=== PATIENT | male | born 1960 | race Two or more races ===

== ENCOUNTER 2020-10-24 10:30 | Inpatient (IN) | payer MEDICAID, OTHER ==
[~2020-10-24] VITALS: Ht 167.6 cm; Wt 76.1 kg
[2020-10-24] MEDS ORDERED: SODIUM CHLORIDE 0.9% 2,000 ML IV ONE (12:30)
[2020-10-24 13:07] LABS: Basophils # (auto) 0 10 ^3/uL (0-0.2); Basophils % (auto) 0.1 % (0.0-2.0); Eosinophils # (auto) 0 10 ^3/uL (0-0.8); Hematocrit 45.8 % (41.0-53.0); Hemoglobin 15.6 g/dL (13.5-17.5); Lymphocytes # (auto) 1.1 10 ^3/uL (0.4-5.4); Lymphocytes % (auto) 13.9 % (10.0-50.0); Mean Corpuscular Hemoglobin 31.2 pg (28.0-32.0); Mean Corpuscular Hgb Conc. 34.1 g/dL (32.0-36.0); Mean Corpuscular Volume 91.5 fL (80.0-100.0); Monocytes # (auto) 0.7 10 ^3/uL (0-1.3); Monocytes % (auto) 8.2 % (0.0-12.0); Neutrophils # (auto) 6.3 10 ^3/uL (1.6-8.6); Neutrophils % (auto) 77.8 % (37.0-80.0); Nucleated Red Blood Cells % 0.1 %; Platelet Count (auto) 229 10^3/uL (140-450); Red Cell Distribution Width 13.6 % (11.8-14.3); White Blood Cell 8.1 10^3/uL (4.4-10.8)
[2020-10-24 13:27] LABS: Albumin 2.9 g/dL (3.4-5.0); Anion Gap 13 (5-15); Blood Urea Nitrogen 26 mg/dL (7-18); Calcium 9.1 mg/dL (8.5-10.1); Carbon Dioxide 18 mmol/L (21-32); Chloride 114 mmol/L (98-107); Magnesium 2.4 mg/dL (1.6-2.6); Potassium 4.4 mmol/L (3.5-5.1); Sodium 145 mmol/L (136-145)
[2020-10-24 13:32] LABS: Alanine Aminotransferase 23 U/L (16-61); Alkaline Phosphatase 103 U/L (45-117); Aspartate Aminotransferase 14 U/L (15-37); BUN/Creatinine Ratio 24.3; Bilirubin, Total 0.6 mg/dL (0.2-1.0); GFR African American 90 mL/min; GFR Non-African American 75 mL/min; Total Protein 8.2 g/dL (6.4-8.2)
[2020-10-24 13:54] LABS: Glucose 422 mg/dL (74-106)
[2020-10-24 15:58] LABS: INR 1.07 (0.9-1.15)
[2020-10-24] MEDS ORDERED: AZITHROMYCIN 500MG/ 250ML 250 ML IV ONE (18:45)
[2020-10-24] MEDS ORDERED: SODIUM CHLORIDE 0.9% 500 ML IV ONE (19:30)
[2020-10-24] MEDS ORDERED: DEXTROSE (50%) 50ML SYRG IV PRN (19:30)
[2020-10-24] MEDS ORDERED: NITROGLYCERIN 0.4 MG SL TAB SL PRN ×2 (19:30→23:45)
[2020-10-24] MEDS ORDERED: MORPHINE SULF INJ 2 MG/ML SYRINGE 1ML IV PRN ×3 (19:30→23:45)
[2020-10-24] MEDS ORDERED: ONDANSETRON HCL 4 MG/2 ML VIAL IV PRN (23:45)
[2020-10-24] MEDS ORDERED: ALUM & MAG HYDROX-SIMETH LIQ(MAALOX) 30 ML PO PRN (23:45)
[2020-10-24] MEDS ORDERED: REMDESIVIR PER PHARMACY 0 ML IV SCH (23:45)
[2020-10-24] MEDS ORDERED: VANCOMYCIN PER PHARMACY 0 MG IV SCH (23:45)
[2020-10-24] MEDS ORDERED: LORazepam 0.5 MG TAB PO PRN (23:45)
[2020-10-24] MEDS ORDERED: ENOXAPARIN SOD 100 MG/1 ML SYRINGE SC ONE (23:45)
[2020-10-24] MEDS ORDERED: HYDROcodone-ACET 5/325MG TAB PO PRN (23:45)
[2020-10-24] MEDS ORDERED: DOCUSATE SOD 100 MG CAP PO PRN (23:45)
[2020-10-24] MEDS ORDERED: ACETAMINOPHEN 500 MG TAB PO PRN (23:45)
[2020-10-24] MEDS ORDERED: PIPERACILLIN-TAZOB 3.375GM 100 ML IV ONE (23:45)
[2020-10-25] VITALS (7 sets, daily range): BP systolic 127–137; BP diastolic 68–77
[2020-10-25] MEDS ORDERED: VANCOMYCIN 1GM/250ML 250 ML IV ONE ×2 (00:15→17:15)
[2020-10-25] MEDS: ACCU-CHEK COMFORT CURVE STRIP VI SCH ×5 (00:25→23:36)
[2020-10-25] MEDS: InsuLIN REG 1unit/0.01ml Soln (100units/ml) SC SCH ×5 (00:25→23:39)
[2020-10-25] MEDS: SODIUM CHLORIDE 0.9% 1,000 ML IV SCH ×2 (00:26→16:25)
[2020-10-25] MEDS: DexAMETHasone SOD PHOS 10MG/1ML VIAL INJ IV SCH (10:37)
[2020-10-25] MEDS: ASCORBIC ACID 1,000 MG TAB PO SCH (10:38)
[2020-10-25] MEDS: FAMOTIDINE (10MG/ML) 2ML VL IV SCH ×2 (10:38→21:41)
[2020-10-25] MEDS: ZINC SULFATE 220mg CAP or TAB PO SCH (10:38)
[2020-10-25] MEDS: CHOLECALCIFEROL (VITD3) 2,000 UNIT CAP PO SCH (10:39)
[2020-10-25] MEDS: ENOXAPARIN SOD 100 MG/1 ML SYRINGE SC SCH ×2 (10:47→21:41)
[2020-10-25] MEDS: PIPERACILLIN-TAZOB 3.375GM 100 ML IV SCH ×2 (12:26→23:36)
[2020-10-25 13:39] LABS: Basophils # (auto) 0 10 ^3/uL (0-0.2); Basophils % (auto) 0.2 % (0.0-2.0); Eosinophils # (auto) 0 10 ^3/uL (0-0.8); Eosinophils % (auto) 0.7 % (0.0-7.0); Hematocrit 41.8 % (41.0-53.0); Hemoglobin 14.3 g/dL (13.5-17.5); Lymphocytes # (auto) 0.7 10 ^3/uL (0.4-5.4); Lymphocytes % (auto) 11.4 % (10.0-50.0); Mean Corpuscular Hemoglobin 30.6 pg (28.0-32.0); Mean Corpuscular Hgb Conc. 34.3 g/dL (32.0-36.0); Mean Corpuscular Volume 89.4 fL (80.0-100.0); Monocytes # (auto) 0.3 10 ^3/uL (0-1.3); Monocytes % (auto) 4.2 % (0.0-12.0); Neutrophils # (auto) 5.4 10 ^3/uL (1.6-8.6); Neutrophils % (auto) 83.5 % (37.0-80.0); Platelet Count (auto) 211 10^3/uL (140-450); Red Blood Cells 4.67 10^6/uL (4.5-5.90); Red Cell Distribution Width 13.4 % (11.8-14.3); White Blood Cell 6.4 10^3/uL (4.4-10.8)
[2020-10-25 13:58] LABS: Potassium 3.7 mmol/L (3.5-5.1)
[2020-10-25 14:04] LABS: Albumin 2.4 g/dL (3.4-5.0); BUN/Creatinine Ratio 21.2; Bilirubin, Total 0.5 mg/dL (0.2-1.0); Calcium 8.4 mg/dL (8.5-10.1); Total Protein 6.8 g/dL (6.4-8.2)
[2020-10-25] MEDS ORDERED: REMDESIVIR 200 MG in NS 210ml LOADING DOSE ADULT IV ONE (15:00)
[2020-10-25] MEDS: VANCOMYCIN 1GM/250ML 250 ML IV SCH (21:03)
[2020-10-25] MEDS: BUDESONIDE (INHALATION) 180 MCG IH IN SCH (21:15)
[2020-10-25] MEDS: ALBUTEROL SULF HFA 90MCG INH 200DOSE IN PRN (21:16)
[2020-10-25 22:38] LABS: Urine Bacteria NONE SEEN /hpf (None Seen); Urine Blood Negative /uL (Negative); Urine Specific Gravity 1.026 (1.001-1.035); Urine WBC 1 /hpf (0 - 3)
[2020-10-25 22:44] LABS: Alcohol, Urine < 3.0 mg/dL (0-10); Amphetamine Screen, Urine NEGATIVE (NEGATIVE); Barbiturate Scree,Urine NEGATIVE (NEGATIVE); Benzodiazephine Screen, Urine NEGATIVE (NEGATIVE); Cannabinoid Screen, Urine NEGATIVE (NEGATIVE); Cocaine Screen, Urine NEGATIVE (NEGATIVE); Opiate Scree,Urine NEGATIVE (NEGATIVE); Phencyclidine Screen, Urine NEGATIVE (NEGATIVE)
[2020-10-26] VITALS (7 sets, daily range): BP systolic 93–131; BP diastolic 58–73
[2020-10-26] MEDS: PIPERACILLIN-TAZOB 3.375GM 100 ML IV SCH ×4 (05:40→18:56)
[2020-10-26] MEDS: ACCU-CHEK COMFORT CURVE STRIP VI SCH ×3 (05:40→18:56)
[2020-10-26] MEDS: InsuLIN REG 1unit/0.01ml Soln (100units/ml) SC SCH ×3 (05:41→18:57)
[2020-10-26 07:41] LABS: Potassium 3.4 mmol/L (3.5-5.1)
[2020-10-26 07:54] LABS: Albumin 2.4 g/dL (3.4-5.0); BUN/Creatinine Ratio 22.9; Bilirubin, Total 0.5 mg/dL (0.2-1.0); Calcium 8.5 mg/dL (8.5-10.1); Total Protein 6.8 g/dL (6.4-8.2)
[2020-10-26] MEDS: BUDESONIDE (INHALATION) 180 MCG IH IN SCH ×2 (08:48→21:30)
[2020-10-26] MEDS: SODIUM CHLORIDE 0.9% 1,000 ML IV SCH (09:05)
[2020-10-26] MEDS ORDERED: METF500S PO (09:30)
[2020-10-26] MEDS: VANCOMYCIN 1GM/250ML 250 ML IV SCH ×2 (10:19→20:54)
[2020-10-26] MEDS: DexAMETHasone SOD PHOS 10MG/1ML VIAL INJ IV SCH (10:19)
[2020-10-26] MEDS: FAMOTIDINE (10MG/ML) 2ML VL IV SCH ×2 (10:19→21:32)
[2020-10-26] MEDS: ZINC SULFATE 220mg CAP or TAB PO SCH (10:20)
[2020-10-26] MEDS: ASCORBIC ACID 1,000 MG TAB PO SCH (10:20)
[2020-10-26] MEDS: CHOLECALCIFEROL (VITD3) 2,000 UNIT CAP PO SCH (10:20)
[2020-10-26] MEDS: ENOXAPARIN SOD 100 MG/1 ML SYRINGE SC SCH ×2 (10:21→21:32)
[2020-10-26] MEDS ORDERED: POTASSIUM CHL 20 Meq TABLET PO ONE (11:15)
[2020-10-26] MEDS: ALBUTEROL SULF HFA 90MCG INH 200DOSE IN PRN ×2 (11:15→21:30)
[2020-10-26] MEDS ORDERED: FUROSEMIDE 20 MG/2 ML VIAL IV ONE (11:15)
[2020-10-26] MEDS: REMDESIVIR 100 MG in SODIUM CHL 0.9% 250 ML IV SCH (15:46)
[2020-10-26] MEDS: FUROSEMIDE 20 MG/2 ML VIAL IV SCH (18:56)
[2020-10-27] VITALS (7 sets, daily range): BP systolic 94–138; BP diastolic 56–75
[2020-10-27] MEDS: ACCU-CHEK COMFORT CURVE STRIP VI SCH ×6 (00:03→21:34)
[2020-10-27] MEDS: PIPERACILLIN-TAZOB 3.375GM 100 ML IV SCH ×5 (00:03→23:35)
[2020-10-27] MEDS: InsuLIN REG 1unit/0.01ml Soln (100units/ml) SC SCH ×5 (00:04→22:46)
[2020-10-27] MEDS: SODIUM CHLORIDE 0.9% 1,000 ML IV SCH (02:00)
[2020-10-27] MEDS: FUROSEMIDE 20 MG/2 ML VIAL IV SCH (05:51)
[2020-10-27] MEDS: BUDESONIDE (INHALATION) 180 MCG IH IN SCH ×2 (07:18→21:50)
[2020-10-27] MEDS: ALBUTEROL SULF HFA 90MCG INH 200DOSE IN PRN ×2 (07:19→21:50)
[2020-10-27 07:35] LABS: Potassium 3.3 mmol/L (3.5-5.1)
[2020-10-27 07:54] LABS: Albumin 2.6 g/dL (3.4-5.0); BUN/Creatinine Ratio 26.7; Bilirubin, Total 0.5 mg/dL (0.2-1.0); Calcium 9.2 mg/dL (8.5-10.1); Total Protein 7.1 g/dL (6.4-8.2)
[2020-10-27] MEDS: VANCOMYCIN 1GM/250ML 250 ML IV SCH (08:39)
[2020-10-27] MEDS: DexAMETHasone SOD PHOS 10MG/1ML VIAL INJ IV SCH (10:42)
[2020-10-27] MEDS: FAMOTIDINE (10MG/ML) 2ML VL IV SCH ×2 (10:42→21:33)
[2020-10-27] MEDS: ZINC SULFATE 220mg CAP or TAB PO SCH (10:42)
[2020-10-27] MEDS: ENOXAPARIN SOD 100 MG/1 ML SYRINGE SC SCH ×2 (10:43→21:33)
[2020-10-27] MEDS: ASCORBIC ACID 1,000 MG TAB PO SCH (10:43)
[2020-10-27] MEDS: POTASSIUM CHL 20 Meq TABLET PO SCH (10:43)
[2020-10-27] MEDS: CHOLECALCIFEROL (VITD3) 2,000 UNIT CAP PO SCH (10:43)
[2020-10-27] MEDS ORDERED: POTASSIUM CHL 20 Meq TABLET PO ONE (14:30)
[2020-10-27] MEDS: REMDESIVIR 100 MG in SODIUM CHL 0.9% 250 ML IV SCH (15:33)
[2020-10-27] MEDS: ATORVASTATIN 20 MG TAB PO SCH (21:35)
[2020-10-27] MEDS: INSULIN LANTUS (GLARGINE) 1 /0.01ml (100units/ml) SC SCH (22:45)
[2020-10-28] MEDS: ACCU-CHEK COMFORT CURVE STRIP VI SCH ×6 (02:37→22:40)
[2020-10-28] MEDS: InsuLIN REG 1unit/0.01ml Soln (100units/ml) SC SCH ×6 (02:38→22:35)
[2020-10-28 05:00] VITALS: BP 87/50
[2020-10-28] MEDS: PIPERACILLIN-TAZOB 3.375GM 100 ML IV SCH ×3 (06:03→17:18)
[2020-10-28 08:18] LABS: Basophils # (auto) 0 10 ^3/uL (0-0.2); Basophils % (auto) 0.1 % (0.0-2.0); Eosinophils # (auto) 0 10 ^3/uL (0-0.8); Eosinophils % (auto) 0.5 % (0.0-7.0); Hematocrit 42.9 % (41.0-53.0); Hemoglobin 14.5 g/dL (13.5-17.5); Lymphocytes # (auto) 1.4 10 ^3/uL (0.4-5.4); Lymphocytes % (auto) 26.6 % (10.0-50.0); Mean Corpuscular Hemoglobin 30.1 pg (28.0-32.0); Mean Corpuscular Hgb Conc. 33.9 g/dL (32.0-36.0); Mean Corpuscular Volume 88.6 fL (80.0-100.0); Monocytes # (auto) 0.5 10 ^3/uL (0-1.3); Neutrophils # (auto) 3.3 10 ^3/uL (1.6-8.6); Neutrophils % (auto) 62.8 % (37.0-80.0); Nucleated Red Blood Cells % 0.1 %; Platelet Count (auto) 208 10^3/uL (140-450); Red Blood Cells 4.84 10^6/uL (4.5-5.90); Red Cell Distribution Width 13.4 % (11.8-14.3); White Blood Cell 5.3 10^3/uL (4.4-10.8)
[2020-10-28 08:21] LABS: Potassium 3.3 mmol/L (3.5-5.1)
[2020-10-28 08:32] LABS: Albumin 2.5 g/dL (3.4-5.0); BUN/Creatinine Ratio 28.4; Bilirubin, Total 0.5 mg/dL (0.2-1.0); CRP High Sensitivity 0.44 mg/dL (< 0.3); Calcium 8.8 mg/dL (8.5-10.1); Total Protein 6.5 g/dL (6.4-8.2)
[2020-10-28 09:00] VITALS: BP 81/56
[2020-10-28] MEDS: FAMOTIDINE (10MG/ML) 2ML VL IV SCH ×2 (10:00→22:39)
[2020-10-28] MEDS: ZINC SULFATE 220mg CAP or TAB PO SCH (10:00)
[2020-10-28] MEDS: ASCORBIC ACID 1,000 MG TAB PO SCH (10:00)
[2020-10-28] MEDS: FUROSEMIDE 20 MG/2 ML VIAL IV SCH (10:00)
[2020-10-28] MEDS: POTASSIUM CHL 20 Meq TABLET PO SCH ×2 (10:00)
[2020-10-28] MEDS: CHOLECALCIFEROL (VITD3) 2,000 UNIT CAP PO SCH (10:00)
[2020-10-28] MEDS: ASPirin 81 mg TAB PO SCH (10:58)
[2020-10-28] MEDS: DexAMETHasone SOD PHOS 10MG/1ML VIAL INJ IV SCH (10:59)
[2020-10-28] MEDS: ENOXAPARIN SOD 100 MG/1 ML SYRINGE SC SCH ×2 (11:00→22:39)
[2020-10-28 12:30] VITALS: BP 91/49
[2020-10-28] MEDS: REMDESIVIR 100 MG in SODIUM CHL 0.9% 250 ML IV SCH (15:00)
[2020-10-28] MEDS ORDERED: POTASSIUM CHL 20 Meq TABLET PO ONE (15:15)
[2020-10-28 17:23] VITALS: BP 79/53
[2020-10-28] MEDS: ALBUTEROL SULF HFA 90MCG INH 200DOSE IN PRN (19:56)
[2020-10-28] MEDS: BUDESONIDE (INHALATION) 180 MCG IH IN SCH (19:56)
[2020-10-28 20:30] VITALS: BP 95/62
[2020-10-28 22:00] VITALS: BP 90/57
[2020-10-28] MEDS: INSULIN LANTUS (GLARGINE) 1 /0.01ml (100units/ml) SC SCH (22:35)
[2020-10-28] MEDS: ATORVASTATIN 20 MG TAB PO SCH (22:39)
[2020-10-29] MEDS: PIPERACILLIN-TAZOB 3.375GM 100 ML IV SCH ×3 (00:22→11:07)
[2020-10-29] MEDS: ACCU-CHEK COMFORT CURVE STRIP VI SCH ×6 (02:22→22:04)
[2020-10-29] MEDS: InsuLIN REG 1unit/0.01ml Soln (100units/ml) SC SCH ×6 (02:23→22:07)
[2020-10-29 05:00] VITALS: BP 90/60
[2020-10-29] MEDS: ALBUTEROL SULF HFA 90MCG INH 200DOSE IN PRN ×2 (07:15→19:27)
[2020-10-29] MEDS: BUDESONIDE (INHALATION) 180 MCG IH IN SCH ×2 (07:15→19:26)
[2020-10-29 09:00] VITALS: BP 91/53
[2020-10-29] MEDS: POTASSIUM CHL 20 Meq TABLET PO SCH ×2 (10:00→11:06)
[2020-10-29] MEDS: FUROSEMIDE 20 MG/2 ML VIAL IV SCH (10:00)
[2020-10-29] MEDS: ASPirin 81 mg TAB PO SCH (11:07)
[2020-10-29] MEDS: ENOXAPARIN SOD 100 MG/1 ML SYRINGE SC SCH ×2 (11:07→22:03)
[2020-10-29] MEDS: FAMOTIDINE (10MG/ML) 2ML VL IV SCH ×2 (11:07→22:02)
[2020-10-29] MEDS: DexAMETHasone SOD PHOS 10MG/1ML VIAL INJ IV SCH (11:08)
[2020-10-29] MEDS: ASCORBIC ACID 1,000 MG TAB PO SCH (11:09)
[2020-10-29] MEDS: ZINC SULFATE 220mg CAP or TAB PO SCH (11:09)
[2020-10-29] MEDS: CHOLECALCIFEROL (VITD3) 2,000 UNIT CAP PO SCH (11:10)
[2020-10-29 13:00] VITALS: BP 83/53
[2020-10-29] MEDS: REMDESIVIR 100 MG in SODIUM CHL 0.9% 250 ML IV SCH (14:44)
[2020-10-29 17:00] VITALS: BP 91/60
[2020-10-29 21:45] VITALS: BP 95/48
[2020-10-29] MEDS: ATORVASTATIN 20 MG TAB PO SCH (22:02)
[2020-10-29] MEDS: DOXYCYCLINE 100 MG TAB/CAP PO SCH (22:02)
[2020-10-29] MEDS: INSULIN LANTUS (GLARGINE) 1 /0.01ml (100units/ml) SC SCH (22:06)
[2020-10-30] MEDS: ACCU-CHEK COMFORT CURVE STRIP VI SCH ×6 (01:22→21:35)
[2020-10-30] MEDS: InsuLIN REG 1unit/0.01ml Soln (100units/ml) SC SCH ×6 (01:23→21:39)
[2020-10-30 05:00] VITALS: BP 87/55
[2020-10-30 06:56] LABS: Potassium 3.5 mmol/L (3.5-5.1)
[2020-10-30 07:23] LABS: BUN/Creatinine Ratio 33.8; Calcium 8.5 mg/dL (8.5-10.1)
[2020-10-30] MEDS: ALBUTEROL SULF HFA 90MCG INH 200DOSE IN PRN ×2 (07:38→21:51)
[2020-10-30] MEDS: BUDESONIDE (INHALATION) 180 MCG IH IN SCH ×2 (07:38→21:50)
[2020-10-30 09:00] VITALS: BP_SYST 112; BP_SYST 95; BP_DIAS 54; BP_DIAS 70
[2020-10-30] MEDS: FUROSEMIDE 20 MG/2 ML VIAL IV SCH (10:00)
[2020-10-30] MEDS ORDERED: DexAMETHasone 4 MG TAB PO SCH (10:00)
[2020-10-30] MEDS: ASPirin 81 mg TAB PO SCH (11:04)
[2020-10-30] MEDS: FAMOTIDINE (10MG/ML) 2ML VL IV SCH ×2 (11:04→21:34)
[2020-10-30] MEDS: ZINC SULFATE 220mg CAP or TAB PO SCH (11:04)
[2020-10-30] MEDS: DOXYCYCLINE 100 MG TAB/CAP PO SCH ×2 (11:05→21:34)
[2020-10-30] MEDS: CHOLECALCIFEROL (VITD3) 2,000 UNIT CAP PO SCH (11:05)
[2020-10-30] MEDS: POTASSIUM CHL 20 Meq TABLET PO SCH (11:05)
[2020-10-30] MEDS: ASCORBIC ACID 1,000 MG TAB PO SCH (11:05)
[2020-10-30] MEDS: ENOXAPARIN SOD 100 MG/1 ML SYRINGE SC SCH ×2 (11:06→21:35)
[2020-10-30 16:21] VITALS: BP 93/54
[2020-10-30 18:52] VITALS: BP 106/66
[2020-10-30] MEDS: ATORVASTATIN 20 MG TAB PO SCH (21:34)
[2020-10-30] MEDS: INSULIN LANTUS (GLARGINE) 1 /0.01ml (100units/ml) SC SCH (21:39)
[2020-10-30 22:00] VITALS: BP 116/75
[2020-10-31] MEDS: InsuLIN REG 1unit/0.01ml Soln (100units/ml) SC SCH ×2 (01:12→05:08)
[2020-10-31] MEDS: ACCU-CHEK COMFORT CURVE STRIP VI SCH ×2 (01:12→05:08)
[2020-10-31 05:39] VITALS: BP 131/95
== END 2020-10-31 11:15 | disposition home or self-care (01) | DRG 137 ==
LOC: EDBD 10:30 → ER 10:30 → TELE 10:31 → TELE-EAST 10-25 06:32
PROVIDERS: ADMIT Hospitalist; ATTEND Internal Medicine
PROC: XW033E5 Introduction of Remdesivir Anti-infective into Peripheral Vein, Percutaneous Approach, New Technology Group 5 (ICD-10-PCS; principal; 2020-10-25)
DX: U07.1 COVID-19 (principal); J96.01 Acute respiratory failure with hypoxia; E44.0 Moderate protein-calorie malnutrition; N17.9 Acute kidney failure, unspecified; E11.65 Type 2 diabetes mellitus with hyperglycemia; J12.89 Other viral pneumonia; E66.9 Obesity, unspecified; Z68.27 Body mass index [BMI] 27.0-27.9, adult; E78.5 Hyperlipidemia, unspecified; F17.210 Nicotine dependence, cigarettes, uncomplicated; Z79.4 Long term (current) use of insulin; Z79.82 Long term (current) use of aspirin; Z82.49 Family history of ischemic heart disease and other diseases of the circulatory system; Z83.3 Family history of diabetes mellitus
CPT/HCPCS: 36415; 36600; 71045; 80048; 80053; 80202; 80307; 81001; 82728; 82805; 82962; 83036; 83605; 83615; 83735; 84484; 85025; 85379; 85610; 85730; 86141; 87040; 87086; 87426; 93005; 94640; 96361; 96365; 96367; G0378; J1100; J1815; J2543; J3490

== ENCOUNTER 2024-04-30 10:18 | Emergency (ER) | payer MEDICAID, OTHER ==
[~2024-04-30] VITALS: Ht 160 cm; Wt 61.8 kg
[~2024-04-30 10:18] MED LIST: METF500S3 PO
[2024-04-30 10:54] VITALS: BP 115/71; PULSE 94; RESP 14; TEMP 98.3; O2SAT 96
== END 2024-04-30 11:14 | disposition home or self-care (01) ==
LOC: ER 10:18
DX: N13.8 Other obstructive and reflux uropathy (principal); E11.9 Type 2 diabetes mellitus without complications; E78.5 Hyperlipidemia, unspecified; F17.210 Nicotine dependence, cigarettes, uncomplicated; Z46.6 Encounter for fitting and adjustment of urinary device
CPT/HCPCS: 51702